=== PATIENT | female | born 1955 | race Caucasian/White ===

== ENCOUNTER 2022-06-12 11:55 | Emergency (ER) | payer MEDICARE, SELFPAY ==
[2022-06-12 12:07] VITALS: BP 132/66; PULSE 107; RESP 16; TEMP 38; O2SAT 97
--- NOTE | 2022-06-12 12:21 | ED.URI ---
HPI - URI/Sore Throat General Chief Complaint: Upper Respiratory Infection Stated Complaint: fever,achy,rt knee pain Time Seen by Provider: 06/12/22 12:28 Source: patient, family (), RN notes reviewed and old records reviewed Mode of arrival: ambulatory Limitations: no limitations History of Present Illness HPI Narrative: 66-year-old female presents to the [facility] with . states that the entire household has been positive for influenza. Requesting Tamiflu. Patient reports generalized body aches fever at home. Reports having hives as well. reports whenever she gets sick she gets hives. Has taken Benadryl prior to arrival no difficulty breathing. No lip or tongue swelling Related Data Home Medications Medication Instructions Recorded Confirmed amlodipine 10 mg tablet 10 mg PO DAILY 06/12/22 06/12/22 atorvastatin 20 mg tablet 20 mg PO DAILY 06/12/22 06/12/22 hydrocodone 5 mg-acetaminophen 325 1 tablet PO Q6-8H PRN Pain 06/12/22 06/12/22 mg tablet rivaroxaban 20 mg tablet (Xarelto) 20 mg PO DAILY 06/12/22 06/12/22 Allergies Allergy/AdvReac Type Severity Reaction Status Date / Time Penicillins Allergy Hives Verified 06/12/22 12:15 Review of Systems Review of Systems: All systems reviewed & are unremarkable except as noted in HPI and below Constitutional: Constitutional: Reports as per HPI, Reports body ache(s), Denies chills and Reports fever(s) Eyes: Eyes: Reports no additional eye complaints ENT: Reports system reviewed and no additional complaints, except as documented Cardiovascular: Cardiovascular: Reports no additional cardiovascular complaints Respiratory: Respiratory: Reports no additional respiratory complaints Gastrointestinal: Gastrointestinal: Reports no additional gastrointestinal complaints Musculoskeletal: Musculoskeletal: Reports no additional musculoskeletal complaints Integumentary/Breasts: Skin/Breast: Reports system reviewed and no additional complaints, except as docu Neurologic: Reports system reviewed and no additional complaints, except as documented Psychiatric: Psychiatric: Reports no additional psychiatric complaints Allergic/Immunologic: Allergic/Immunologic: Reports no additional allergic/immunologic complaints [facility] Past Medical History Medical History (Updated 06/12/22 @ 19:48 by Yulia Camilo APRN) High cholesterol History of high blood pressure Social History Social History (Updated 06/12/22 @ 19:48 by Yulia Camilo APRN) Living arrangements: with family Gender identity (if verbalized by the patient): Female Comments At the time of my signature, I reviewed and agree with the nursing past medical, surgical, social, and family history. There is no relevant family history pertinent to the patient complaint. Exam Const: General: comfortable, no acute distress, well developed, alert, ill appearing ( acute chronic mild) and well nourished Nutritional Appearance: well nourished and obese Orientation/consciousness: patient oriented x3 Limitations: no limitations HENMT: Head: normal to inspection Ears: external ears normal, TM's normal bilaterally and EAC's normal Face/Nose/Sinus: Normal external nose present and Normal nares present Face and sinus: normal facial exam Mouth: Yes Normal oral and palatal mucosa present, Yes lip normal and Yes moist mucous membranes Throat: posterior oropharynx normal and uvula midline Eyes: General: appearance normal, both eyes and all related structures Conjunctivae: conjunctivae normal Pupils: Equal, round and reactive pupils present Neck: Neck: normal visual inspection, full ROM, no lymphadenopathy and no meningeal signs Chest: Chest palpation & inspection: normal inspection of the chest Resp: Effort & Inspection: normal respiratory effort and no use of accessory muscles Auscultation: clear to auscultation bilaterally, no crackles, no rales, no rhonchi and no wheezes Cardio: Rate
== END 2022-06-12 12:44 | disposition home or self-care (01) ==
PROVIDERS: Emergency Provider Nurse Practitioner; PCP Family Medicine
DX: B34.9 Viral infection, unspecified (principal); E78.00 Pure hypercholesterolemia, unspecified; I10 Essential (primary) hypertension; Z79.01 Long term (current) use of anticoagulants
CPT/HCPCS: 87804; 99213; G0463

== ENCOUNTER 2022-07-19 13:08 | Emergency (ER) | payer MEDICARE, SELFPAY ==
[2022-07-19 13:12] VITALS: BP 148/82; PULSE 101; RESP 20; TEMP 36.7; O2SAT 98
--- NOTE | 2022-07-19 14:50 | ED.SKABFB ---
HPI - Skin/Abscess/Foreign Bdy General Chief complaint: Skin/Abscess/Foreign Body Stated complaint: Rash on right side and back Time Seen by Provider: 07/19/22 14:51 Source: patient, RN notes reviewed and old records reviewed Mode of arrival: ambulatory Limitations: no limitations History of Present Illness HPI narrative: 66 year old female presents to [facility] care with complaints of rash from right lower abdomen to right side and to right lower back for the past 2 days. Patient has vesicular rash that does not cross midline of back, patient reports that she has had pain to her back for about a week. Patient was recently hospitalized for meningitis encephalopathy and then went to rehab for a week. Patient reports that she has been applying Bacitracin ointment to rash, does have some hydrocodone also that she has been taking for pain. MD complaint: rash (vesicular painful right lower back to rignt lower abdomen) Onset (ago): day(s) (2 days rash, 1 week pain) Severity scale (1-10): 8 Treatments prior to arrival: other (bacitracin ) Related Data Home Medications Medication Instructions Recorded Confirmed amlodipine 10 mg tablet 10 mg PO DAILY 06/12/22 07/19/22 atorvastatin 20 mg tablet 20 mg PO DAILY 06/12/22 07/19/22 hydrocodone 5 mg-acetaminophen 325 1 tablet PO Q6-8H PRN Pain 06/12/22 07/19/22 mg tablet rivaroxaban 20 mg tablet (Xarelto) 20 mg PO DAILY 06/12/22 07/19/22 lacosamide 150 mg tablet (Vimpat) 150 mg PO Q12H 07/19/22 07/19/22 lamotrigine 25 mg tablet 25 mg PO DAILY 07/19/22 07/19/22 polyethylene glycol 3350 17 gram 17 g PO BID 07/19/22 07/19/22 oral powder packet prednisone 10 mg tablet 10 mg PO DAILY 07/19/22 07/19/22 Allergies Allergy/AdvReac Type Severity Reaction Status Date / Time Penicillins Allergy Mild Hives Verified 07/19/22 13:37 Review of Systems Review of Systems: CONSTITUTIONAL: Denies fever, chills, or sweats. EYES: Denies visual changes, redness, or discharge. ENT: Denies rhinorrhea, congestion, sore throat, or otalgia. CARDIOVASCULAR: Denies chest pain, palpitations, or edema. RESPIRATORY: Denies cough or dyspnea. GASTROINTESTINAL: Denies abdominal pain, nausea, vomiting, or diarrhea. GENITOURINARY: Denies dysuria or hematuria. SKIN: Positive for vesicular rash from right abdomen to right lower back MUSCULOSKELETAL: Reports back pain where lesions are present, no other acute joint pain, or myalgia. NEUROLOGIC: Denies headache, numbness, or weakness. PSYCHIATRIC: Denies anxiety or depression. All systems reviewed & are unremarkable except as noted in HPI and below PMFSH Past Medical History Medical History (Updated 07/29/22 @ 16:10 by Coco Patel NP) Encephalopathy Epilepsy High cholesterol History of high blood pressure Lupus Meningitis Surgical History Surgical History (Updated 07/29/22 @ 16:11 by Coco Patel NP) History of bilateral knee replacement Social History Social History (Updated 07/29/22 @ 16:11 by Coco Patel NP) Smoking status: Never smoker Alcohol intake: unknown Substance use type: does not use Gender identity (if verbalized by the patient): Female Comments At time of signature, agree with nursing past medical, surgical, social and family history. There is no relevant family history pertinent to the presenting complaint Exam Narrative: GENERAL: Well-appearing, well-nourished, and in no acute distress. HEAD: Normocephalic, atraumatic. EYES: PERRLA and EOMI. ENT: Nares clear, no rhinorrhea or epistaxis. Mucous membranes moist.TM's normal with good light reflex, throat pink with no lesions ro swelling NECK: Supple. no lymphadenopathy CHEST: Clear to auscultation. No respiratory distress. SAO2 98% on room air HEART: Regular rate and rhythm. No murmur heard. Normal peripheral pulses. ABDOMEN: Soft, nontender, nondistended, normal active bowel sounds. EXTREMITIES: Normal motion. No edema. SKIN: Warm, dry, vesicular grouped lesion fr
== END 2022-07-19 15:03 | disposition home or self-care (01) ==
PROVIDERS: Emergency Provider Registered Nurse; PCP Family Medicine
DX: B02.9 Zoster without complications (principal); E78.00 Pure hypercholesterolemia, unspecified; I10 Essential (primary) hypertension; G40.909 Epilepsy, unspecified, not intractable, without status epilepticus; Z96.653 Presence of artificial knee joint, bilateral; Z79.01 Long term (current) use of anticoagulants; Z86.61 Personal history of infections of the central nervous system; M32.9 Systemic lupus erythematosus, unspecified
CPT/HCPCS: 99213; G0463